=== PATIENT | female | born 1960 | race Two or more races ===

== ENCOUNTER 2019-10-04 00:20 | Emergency (ER) | payer BC, OTHER ==
[~2019-10-04] VITALS: Ht 167.6 cm; Wt 68.0 kg
[2019-10-04 00:44] VITALS: BP 100/74
--- NOTE | 2019-10-04 00:56 | NUR ---
PATIENT CAME TO ER BED 2 C/O RIGHT THIGH PAIN BIB SON. PATIENT IS AAOX4. NO SOB. BREATHING EVENLY AND UNLABORED ON ROOM AIR.
[2019-10-04] MEDS ORDERED: CYCLOBENZAPRINE 10 MG TABLET ONE (00:57)
[2019-10-04] MEDS ORDERED: CYCLOBENZAPRINE 10 MG TABLET PO ONE (01:00)
--- NOTE | 2019-10-04 01:17 | NUR ---
XRAY AT BEDSIDE
--- NOTE | 2019-10-04 01:33 | NUR ---
PATIENT'S SON IS DRIVING.
--- NOTE | 2019-10-04 01:33 | NUR ---
Patient discharged to home in stable condition. Written and verbal after care instructions given. Patient verbalizes understanding of instruction.
== END 2019-10-04 01:33 | disposition home or self-care (01) ==
LOC: ER 00:23
DX: M79.651 Pain in right thigh (principal); F17.200 Nicotine dependence, unspecified, uncomplicated; Z98.890 Other specified postprocedural states
CPT/HCPCS: 72170-TC